=== PATIENT | male | born 1955 | race Caucasian/White ===

== ENCOUNTER → 2020-06-22 | Outpatient (CLI) | payer SELFPAY ==
--- NOTE | 2020-06-22 09:19 | Diagnostic Imaging Report ---
EXAM: CT cardiac calcium score INDICATION: Hypertension, hypercholesterolemia Routine images were obtained for the cardiac calcium scoring exam. The total calcium score is 394. Please see attached sheet The CT images show that the heart size is within normal limits. There are extensive coronary artery calcifications evident. The ascending aorta is not aneurysmally dilated. The descending thoracic aorta, where visualized, is also within normal limits. There is no obvious mediastinal or hilar adenopathy. There are calcified hilar nodes on the right and there is a small calcified granuloma in the medial aspect of the right lower lobe. These findings are most likely a sequela of a prior granulomatous infection. There is also a sizable 5.7 x 5.9 cm hiatal hernia. The lungs, where visualized are clear. The bone windows show no sign of a fracture or of a destructive lesion. IMPRESSION: 1. The total calcium score is 394. Please see attached sheet. 2. There is no acute cardiopulmonary abnormality identified. 3. There is a sizable hiatal hernia. Dictated by: Dictated on workstation # [id number]
== END ==
LOC: RAD FS 08:22
PROVIDERS: ATTEND Nurse Practitioner Family
DX: I10 Essential (primary) hypertension (principal); K44.9 Diaphragmatic hernia without obstruction or gangrene; E78.00 Pure hypercholesterolemia, unspecified; F17.200 Nicotine dependence, unspecified, uncomplicated
CPT/HCPCS: 75571

== ENCOUNTER 2020-07-15 17:29 | Emergency (ER) | payer OTHER ==
[~2020-07-15] VITALS: Ht 175.2 cm; Wt 81.6 kg
[2020-07-15 17:43] LABS: HEMATOCRIT 39 % (40-54); HEMOGLOBIN 13.3 G/DL (13.3-17.7); MEAN CORPUSCULAR HEMOGLOBIN 32 PG (25-34); MEAN CORPUSCULAR VOLUME 94 FL (80-99); WHITE BLOOD COUNT 9.8 10^3/uL (4.3-11.0)
[2020-07-15 17:44] LABS: BASOPHILS % (AUTO) 0 % (0-10); EOSINOPHILS # (AUTO) 0.1 10^3/uL (0.0-0.3); EOSINOPHILS % (AUTO) 1 % (0-10); LYMPHOCYTES # (AUTO) 1.3 X 10^3 (1.0-4.0); LYMPHOCYTES % (AUTO) 13 % (12-44); MEAN CORPUSCULAR HGB CONC 34 G/DL (32-36); MEAN PLATELET VOLUME 9.5 FL (7.4-10.4); MONOCYTES % (AUTO) 10 % (0-12); NEUTROPHILS # (AUTO) 7.5 X 10^3 (1.8-7.8); NEUTROPHILS % (AUTO) 76 % (42-75); PLATELET COUNT 270 10^3/uL (130-400)
[2020-07-15 17:58] LABS: LIPASE 18 U/L (8-78)
[2020-07-15 18:02] LABS: ALANINE AMINOTRANSFERASE 56 U/L (0-55); ALBUMIN 3.8 GM/DL (3.2-4.5); ALKALINE PHOSPHATASE 261 U/L (40-136); BILIRUBIN,TOTAL 0.8 MG/DL (0.1-1.0); BUN/CREATININE RATIO 21; CALCIUM 8.8 MG/DL (8.5-10.1); CARBON DIOXIDE 23 MMOL/L (21-32); CHLORIDE 104 MMOL/L (98-107); CREATININE SERUM 0.77 MG/DL (0.60-1.30); GFR ESTIMATED > 60; GLUCOSE 117 MG/DL (70-105); POTASSIUM 4.5 MMOL/L (3.6-5.0); SODIUM 136 MMOL/L (135-145); TOTAL PROTEIN 6.6 GM/DL (6.4-8.2)
[2020-07-15] MEDS ORDERED: HOLD METFORMIN - RECEIVED CONTRAST 20 ML VIAL IV SCH (18:30)
[2020-07-15] MEDS ORDERED: NS 100 ML (IVPB) BAG IV ONE (18:30)
[2020-07-15] MEDS ORDERED: IOHEXOL 350 MG/ML 100 ML (OMNIPAQUE 350) VIAL IV ONE (18:30)
[2020-07-15] MEDS ORDERED: CATHETER FLUSH 10 ML SYR IV PRN (18:30)
--- NOTE | 2020-07-15 18:58 | Diagnostic Imaging Report ---
PROCEDURE: CT abdomen and pelvis with contrast. TECHNIQUE: Multiple contiguous axial images were obtained through the abdomen and pelvis after administration of intravenous contrast. Auto Exposure Controls were utilized during the CT exam to meet ALARA standards for radiation dose reduction. All CT scans use one or more of the following dose optimizing techniques: automated exposure control, MA and/or KvP adjustment based on patient size and exam type or iterative reconstruction. INDICATION: Epigastric pain. FINDINGS: Lung bases are clear. There is a large sliding hiatal hernia. Liver appears normal. The gallbladder is contracted with wall thickening. There also appears to be a 1 cm stone in the gallbladder. Common duct is not dilated. Portal vein is patent. Pancreas appears normal. Spleen is not enlarged. There is calcific arteriosclerosis of the aorta but no aneurysm. Kidneys are unremarkable. Appendix is normal. Small bowel is not dilated. There is diverticulosis of the colon without evidence of diverticulitis. Urinary bladder is normal. Prostate appears to be surgically absent. IMPRESSION: Cholecystolithiasis with contracted gallbladder and thickened wall. Dictated by: Dictated on workstation # [id number]
[2020-07-15] MEDS ORDERED: ONDA4TAB11 PO (19:41)
[2020-07-15] MEDS ORDERED: AMOX-358 PO (19:41)
[2020-07-15] MEDS ORDERED: OXYC1TAB87 PO (19:41)
[2020-07-15] MEDS ORDERED: AUGMENTIN 875 MG TAB (AMOXICILLIN/CLAVULANATE) ONE (19:42)
--- NOTE | 2020-07-15 19:42 | ED General ---
General Chief Complaint: Abdominal/GI Problems Stated Complaint: ABD PAIN Nursing Triage Note: Patient reports sudden onset of epigastric pain this morning around 0930 that radiated to his upper back. He reports nausea with emesis x 1. He reports some diarrhea today. Patient given fentanyl by EMS and is pain free on arrival to the ED. Nursing Sepsis Screen: No Definite Risk Source of Information: Patient Exam Limitations: No Limitations History of Present Illness Date Seen by Provider: Jul 15, 2020 Time Seen by Provider: 17:00 Initial Comments Patient is a 64-year-old male who drinks heavily daily presents with epigastric right upper quadrant pain starting earlier this morning. Pain lasted for several hours and throughout the day. It is described as dull and cramping and nonradiating. Is not associated with nausea vomiting sweats. Patient has chronic diarrhea. Denies fever, back pain flank pain, urinary frequency urgency or dysuria. No medications or therapies taken prior to ED arrival. Patient does have history of prostate cancer with recent recurrence. He is not currently on chemotherapy. Patient smokes and drinks alcohol daily. Patient given fentanyl prior to ED arrival per EMS and is symptom-free on arrival. Timing/Duration: 4-6 Hours, 12 Hours Severity: Moderate Modifying Factors: improves with Other Associated Systoms: Other Allergies and Home Medications Allergies Coded Allergies: No Known Drug Allergies (Unverified , 07/15/20) Patient Home Medication List Home Medication List Reviewed: Yes Review of Systems Review of Systems Constitutional: see HPI Respiratory: see HPI Cardiovascular: see HPI Genitourinary: see HPI Skin: see HPI Hematologic/Lymphatic: See HPI Immunological/Allergic: see HPI All Other Systems Reviewed Negative Unless Noted: Yes Past Vtagveo-Uljyiw-Xabnkr Hx Past Med/Social Hx: Reviewed Nursing Past Med/Soc Hx Patient Social History Alcohol Use: Regular Use Number of Drinks Today: 0 Alcohol Beverage of Choice: Beer Smoking Status: Current Everyday Smoker Type Used: Cigarettes 2nd Hand Smoke Exposure: No Recent Infectious Disease Expo: No Recent Hopitalizations: No Seasonal Allergies Seasonal Allergies: No Past Medical History Orthopedic, Prostatectomy Respiratory: No Cardiac: Yes High Cholesterol, Hypertension Neurological: No Genitourinary: No Gastrointestinal: Yes Gastroesophageal Reflux Musculoskeletal: No Endocrine: No HEENT: No Cancer: Yes Prostate Did You Recieve Any Treatments: Yes What Type of Treatment Did You: Chemotherapy Psychosocial: No Integumentary: No Physical Exam Vital Signs Vital Signs - First Documented 07/15/20 17:36 Temp 36.4 Pulse 90 Resp 16 B/P (MAP) 127/72 (90) Pulse Ox 96 O2 Delivery Room Air Capillary Refill : Less Than 3 Seconds Height, Weight, BMI Height: '" Weight: lbs. oz. 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 Norm as Tested Lymphatic: No Adenopathy Focused Exam Sepsis Stage: Ruled Out Progress/Results/Core Measures Suspected Sepsis Recent Fever Within 48 Hours: No Infection Criteria Present: Suspected New Infection New/Unexplained Altered Menta: No Sepsis Screen: No Definite Risk SIRS Temperature: Pulse: 90 Respiratory Rate: 16 Laboratory Tests 07/15/20 17:38: White Blood Count 9.8 Blood Pressure 127 /72 Mean: 90 Laboratory Tests 07/15/20 17:38: Creatinine 0.77, Platelet Count 270, Total Bilirubin 0.8 Results/Orders Lab Results Laboratory Tests Test 07/15/20 17:38 Range/Units White Blood Count 9.8 4.3-11.0 10^3/uL Red Blood Count 4.19 L 4.35-5.85 10^6/uL Hemoglobin 13.3 13.3-17.7 G/DL Hematocrit 39 L 40-54 % Mean Corpuscular Volume 94 80-99 FL Mean Corpuscular Hemoglobin 32 25-34 PG Mean Corpuscular Hemoglobin Concent 34 32-36 G/DL Red Cell Distribution Width 13.7 10.0-14.5 % Platelet Count 270 130-400 10^3/uL Mean Platelet Volume 9.5 7.4-10.4 FL Neutrophils (%) (Auto) 76 H 42-75 % Lymphocytes (%) (Auto) 13 12-44 % Monocytes (%) (Auto) 10 0-12 % Eosinophils (%) (Auto) 1 0-10 % Basophils (%) (Auto) 0 0-10 % Neutrophils # (Auto) 7.5 1.8-7.8 X 10^3 Lymphocytes # (Auto) 1.3 1.0-4.0 X 10^3 Monocytes # (Auto) 1.0 0.0-1.0 X 10^3 Eosinophils # (Auto) 0.1 0.0-0.3 10^3/uL Basophils # (Auto) 0.0 0.0-0.1 10^3/uL Sodium Level 136 135-145 MMOL/L Potassium Level 4.5 3.6-5.0 MMOL/L Chloride Level 104 98-107 MMOL/L Carbon Dioxide Level 23 21-32 MMOL/L Anion Gap 9 5-14 MMOL/L Blood Urea Nitrogen 16 7-18 MG/DL Creatinine 0.77 0.60-1.30 MG/DL Estimat Glomerular Filtration Rate > 60 BUN/Creatinine Ratio 21 Glucose Level 117 H 70-105 MG/DL Calcium Level 8.8 8.5-10.1 MG/DL Corrected Calcium 9.0 8.5-10.1 MG/DL Total Bilirubin 0.8 0.1-1.0 MG/DL Aspartate Amino Transf (AST/SGOT) 163 H 5-34 U/L Alanine Aminotransferase (ALT/SGPT) 56 H 0-55 U/L Alkaline Phosphatase 261 H 40-136 U/L Total Protein 6.6 6.4-8.2 GM/DL Albumin 3.8 3.2-4.5 GM/DL Lipase 18 8-78 U/L Serum Alcohol < 10 <10 MG/DL My Orders Orders - ROBB TOURE DO Cbc With Automated Diff (07/15/20 17:36) Comprehensive Metabolic Panel (07/15/20 17:36) Lipase (07/15/20 17:36) Urinalysis (07/15/20 17:36) Alcohol (07/15/20 17:36) Continuous Ekg Monitoring (07/15/20 17:36) Iohexol Injection (Omnipaque 350 Mg/Ml 1 (07/15/20 18:30) Received Contrast (Hold Metformin- Contr (07/15/20 18:30) Sodium Chloride Flush (Catheter Flush Sy (07/15/20 18:30) Ns (Ivpb) (Sodium Chloride 0.9% Ivpb Bag (07/15/20 18:30) Ct Abdomen/Pelvis W (07/15/20 18:36) Medications Given in ED Current Medications Medications Dose Ordered Sig/Ashley Route Start Time Stop Time Status Last Admin Dose Admin Iohexol 100 ml ONCE ONCE IV 07/15/20 18:30 07/15/20 18:31 DC 07/15/20 18:42 100 ML Sodium Chloride 10 ml NEEDED PRN IV 07/15/20 18:30 07/15/20 18:42 10 ML Sodium Chloride 100 ml ONCE ONCE IV 07/15/20 18:30 07/15/20 18:31 DC 07/15/20 18:42 100 ML Vital Signs/I&O 07/15/20 17:36 Temp 36.4 Pulse 90 Resp 16 B/P (MAP) 127/72 (90) Pulse Ox 96 O2 Delivery Room Air Capillary Refill : Less Than 3 Seconds Blood Pressure Mean: 90 Departure Communication (Admissions) Labs reviewed. Elevation of LFTs. White blood cell count normal CT abdomen pelvis: Findings consistent with Cami lithiasis with possible early cholecystitis. Patient remains pain-free. Will place on pain medications antib iotics with general surgical and PCP referral. Return precautions reviewed. Patient verbalizes understanding agreement discharge instructions prior to departure. Impression Primary Impression: Abdominal pain Additional Impression: Cholecystitis Disposition: 01 HOME, SELF-CARE Condition: Stable Departure-Patient Inst. Decision time for Depature: 19:40 Referrals: MILLER HILL APRN (PCP/Family) Primary Care Physician Patient Instructions: Gallstones Add. Discharge Instructions: Please avoid fatty and starchy foods. Decrease alcohol consumption. Take newly prescribed medications as directed and follow-up with your PCP and general surgeon on-call. Return to the ED if new or worsening symptoms. All discharge instructions reviewed with patient and/or family. Voiced understanding. Scripts Ondansetron (Ondansetron Odt) 4 Mg Tab.rapdis 4 MG PO Q4H, #10 TAB Prov: ROBB TOURE DO 07/15/20 Oxycodone HCl/Acetaminophen (Percocet 5-325 mg Tablet) 1 Each Tablet 1 TAB PO Q4H for PAIN-MODERATE MDD 6 TABS for 7 Days, #10 TAB Prov: ROBB TOURE DO 07/15/20 Amoxicillin/Potassium Clav (Augmentin 875-125 Tablet) 1 Each Tablet 1 EACH PO BID, #14 TAB 0 Refills Prov: ROBB TOURE DO 07/15/20 ROBB TOURE DO Jul 15, 2020 19:42
[2020-07-15 19:49] LABS: BACTERIA,URINE NEGATIVE /HPF; BILIRUBIN,URINE NEGATIVE (NEGATIVE); CLARITY,URINE CLEAR; COLOR,URINE YELLOW; GLUCOSE, URINE (UA) NEGATIVE (NEGATIVE); KETONES,URINE NEGATIVE (NEGATIVE); LEUKOCYTE ESTERASE ,URINE NEGATIVE (NEGATIVE); NITRITE,URINE NEGATIVE (NEGATIVE); PROTEIN,URINE NEGATIVE (NEGATIVE)
[2020-07-15 19:54] VITALS: BP 144/81
[2020-07-15] MEDS ORDERED: AUGMENTIN 875 MG TAB (AMOXICILLIN/CLAVULANATE) PO SCH (20:00)
== END 2020-07-15 19:54 | disposition home or self-care (01) ==
LOC: EDUNIT# 17:29 → ER FS 17:31
DX: K81.9 Cholecystitis, unspecified (principal); F17.210 Nicotine dependence, cigarettes, uncomplicated; Z85.46 Personal history of malignant neoplasm of prostate
CPT/HCPCS: 36415; 74177; 80053; 81000; 83690; 85025; G0480; 80320